=== PATIENT | female | born 1955 | race Caucasian/White ===

== ENCOUNTER 2017-05-09 14:00 | Inpatient (IN) | payer BC ==
[~2017-05-09] VITALS: Ht 154.9 cm; Wt 135.9 kg
--- NOTE | ~2017-05-09 | OR ---
PATIENT'S NAME: [facility] AGE: 62 Y [address] ROOM: [address] [address] [place] [facility] [place] DATE: 05/26/2017 OR/Procedure Report DISCHARGE DATE: FAMILY PHYSICIAN: Miguel Pompa ATTENDING PHYSICIAN: BURTON BARROS SURGEON: Burton Barros MD METAL DOOR ASSEMBLER: 1. BAYRON Jacobo. 2. Jeevan Valdez CST/FABRIC MACHINE OPERATOR. DATE OF PROCEDURE: 05/26/2017 PRE-OP DIAGNOSIS: 1. Degenerative joint disease left knee. 2. Obesity (5 feet and 1 inch tall and 136 kg). POST-OP DIAGNOSIS: 1. Degenerative joint disease left knee. 2. Obesity (5 feet and 1 inch tall and 136 kg). 3. 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 OPERATION: Left total knee arthroplasty with computer navigation. ANESTHESIA: Spinal anesthesia plus adductor canal block plus periarticular local anesthesia (ropivacaine with epinephrine and Toradol). ESTIMATED BLOOD LOSS: Less than 20 cubic centimeters. DRAIN: None. SPECIMEN: None. COMPLICATIONS: None. IMPLANT SYSTEM: Abilio Triathlon Size 4 left posterior stabilized femoral component Size 3 universal modular tibial baseplate 11 mm posterior stabilized size 3 X3 tibial polyethylene insert 32 mm Oval X3 patella component (triple pegged). INDICATIONS FOR SURGERY: The patient is a 62-year-old female who presents with advanced left knee degenerative joint disease and associated severely compromised activities of daily living. The patient has decided to proceed with knee replacement after having been thoroughly counseled regarding the associated risks, benefits, and limitations. We have specifically reviewed the risks and implications of infection, deep venous thrombosis, pulmonary embolism, mortality, neurovascular complications, blood transfusion (and PATIENT'S NAME: [facility] AGE: 62 Y [address] ROOM: [address] [address] LOC[place]: [facility] [place] DATE: 05/26/2017 OR/Procedure Report DISCHARGE DATE: FAMILY PHYSICIAN: Miguel Pompa ATTENDING PHYSICIAN: BURTON BARROS associated potential for disease transmission or transfusion reaction), stiffness, instability, mechanical deterioration of the components (due to wear and or loosening), and the potential need for revision. We have also emphasized the importance of active involvement and compliance with post- operative physical therapy as a means of optimizing range of motion and functional recovery. Informed consent has been granted. DESCRIPTION OF PROCEDURE: The patient was positioned supine after administration of anesthesia and prophylactic antibiotics. A well-padded pneumatic tourniquet was placed around the left proximal thigh, and the left lower extremity was prepped and draped with vigilant sterile technique. The patient's name as well as the intended operative side and procedure were confirmed with a verbal time-out involving myself, the circulating nurse, the scrub nurse, and the anesthesiologist. Examination under anesthesia demonstrated a very large soft tissue envelope surrounding the thigh, knee, and calf. There was a large effusion. There was no erythema. There was no abnormal warmth. Range of motion under anesthesia was from a 30-degree flexion contracture to 60 degrees of flexion. There was no clinically evident ligamentous insufficiency. The left lower extremity was elevated and exsanguinated with an Esmarch wrap, and the pneumatic tourniquet was inflated to 300mmHg. The knee was approached through a longitudinal midline incision. A medial parapatellar arthrotomy was performed and the patella was everted. Examination of the joint space demonstrated a large amount of benign-appearing translucent synovial fluid. There were very large osteophytes at the intercondylar notch. There was a very large osteophyte at the anterior aspect of the central portion of the tibial plateau. The anterior cruciate ligament was absent. The posterior cruciate ligament was intact. There was a very enlarged fabella. I debulked this, but left its posterior cortex (and ligamentous attachments) intact. There was a golf ball sized loose body at the posterior aspect of the medial compartment and two additional 1 cm diameter loose bodies at the posterior aspect of the intercondylar notch. There was full-thickness loss of articular cartilage throughout the medial femoral condyle and medial tibial plateau. There was erosion of at least 1 cm of subchondral bone from the posterior half of the medial tibial plateau. There was a 3 x 2 cm osteophyte at the superior pole of the patella. There was a 3 cm osteophyte at the superior aspect of the femoral trochlea. There were very large osteophytes at the superior and inferior margins of the patella. There was a very large osteophyte at the lateral femoral condyle as well. There was extensive complex degenerative tearing of the remnants of the medial and lateral menisci. The large soft tissue envelope at the posterior aspect of the thigh and calf with the significant barrier to full flexion of the knee and exposure of the knee. PATIENT'S NAME: KATY GEE [facility] AGE: 62 Y [address] ROOM: [id number] [place], [place] [address] LOCATION: [facility] [place] DATE: 05/26/2017 OR/Procedure Report DISCHARGE DATE: FAMILY PHYSICIAN: Miguel Pompa ATTENDING PHYSICIAN: BURTON BARROS Remnants of the menisci and cruciate ligaments were excised. The Snip.ly computer navigation femoral tracker was pinned in place at the distal aspect of the femoral trochlea. Absence of motion between the femur and the tracking device was confirmed manually and visually. Femoral osseous landmarks were obtained in order to calibrate the computer navigation system. Landmarks included the center of rotation of the ipsilateral hip, the center-point of the distal femur, the femoral AP axis, 57 points on the medial femoral condyle articular surface, and 57 points on the lateral femoral condyle articular surface. The Snip.ly computer navigation system was subsequently utilized to position the distal femoral resection block such that the distal femoral resection was performed perfectly perpendicular to the femoral mechanical axis. The distal femoral resection was performed with a Thumb Reading oscillating saw. The Snip.ly computer navigation tibial tracker was pinned in place at the anterior aspect of the tibial plateau. Absence of motion between the tibia and the tracking device was confirmed manually and visually. Tibial osseous landmarks were obtained in order to calibrate the computer navigation system. Landmarks included the center-point of the tibial plateau, the AP tibial axis, 57 points on the medial tibial plateau articular surface, 57 points on the lateral tibial plateau articular surface, the medial malleolus, and the lateral malleolus. The Snip.ly computer navigation system was subsequently utilized to position the proximal tibial resection block such that the proximal tibial resection was performed perfectly perpendicular to the tibial mechanical axis. The proximal tibial resection was performed with a Groupsite Precision oscillating saw. Perpendicularity of the tibial resection with respect to the tibial shaft axis was reconfirmed by inserting a spacer- block attached to an extramedullary guide yolette. External rotation of the anterior and posterior femoral resections was set parallel to the epicondylar axis and carefully adjusted in order to create a rectangular flexion gap. The box resection was performed with a reciprocating saw. Anterior and posterior chamfer resections were performed with the oscillating saw. Posterior condyle osteophytes were excised with an osteotome. All other osteophytes were excised with a rongeur. Resection of all remnants of the menisci was reconfirmed. Flexion and extension gaps were confirmed to be symmetric and well balanced with a spacer-block technique. The patella resection was performed with an oscillating saw such that the composite thickness of the reconstructed patella was equivalent to the thickness of the [place] patella. Patella tracking was confirmed to be optimal. A lateral retinacular release had been required in order to anupam the patella. Further lateral retinacular release was not necessary to optimize patella tracking. PATIENT'S NAME: KATY GEE [facility] AGE: 62 Y [address] ROOM: [address] [address] [place]: [facility] [place] DATE: 05/26/2017 OR/Procedure Report DISCHARGE DATE: FAMILY PHYSICIAN: Miguel Pompa ATTENDING PHYSICIAN: BURTON BARROS All trial components were removed and all prepared osseous surfaces were thoroughly irrigated with pulsatile saline lavage and dried prior to cementing all three components in a single stage using Abilio Simplex cement containing pre-mixed tobramycin. All extruded excess cement was removed. The entire joint space was thoroughly inspected and thoroughly irrigated with bacteriostatic pulsatile saline lavage to assure that there was no residual debris of any sort. Final range of motion was from full extension (with no passive hyperextension) to 125 degrees of flexion. Patella tracking was reconfirmed to be optimal. There was excellent anteroposterior stability at 90 degrees of flexion. There was 0 mm of medial lift-off to valgus stress in full extension. There was 2 mm of lateral lift-off to varus stress in full extension. The arthrotomy was closed with multiple simple and [id number] interrupted #1 Vicryl. Subcutaneous tissues were thoroughly re-irrigated with bacteriostatic pulsatile saline lavage. Subcutaneous tissues were re- approximated with simple buried interrupted #0 Vicryl sutures. The skin was closed with simple buried interrupted 2-0 Vicryl sutures followed by surgical philippe. The dressing consisted of Xeroform gauze, 4x4 gauze, ABD pads and two 6-inch Jordy Wraps. There were no intra-operative complications. It should be noted that the physician's medical assistant float played an active, integral role throughout this entire operation. By providing expert retraction, they greatly facilitated and expedited safe and effective exposure of the distal femur, proximal tibia and patella for preparation and implantation of the components. They were also actively involved in the patient's positioning, prepping and draping, as well as wound closure. MD JENNA PEREZ/keerthi /[id number] d: 05/26/171921 t: 06/02/17 0752, OPERATIVE SUMMARY
--- NOTE | ~2017-05-09 | DS ---
PATIENT'S NAME: KATY GEE [facility] AGE: 62 Y [address] ROOM: [place] [address] [place]ATION: [facility] [place] DATE: 05/26/2017 Discharge Summary DISCHARGE DATE: 05/28/2017 FAMILY PHYSICIAN: Miguel Pompa ATTENDING PHYSICIAN: Chandra Rivero PRIMARY DIAGNOSIS: Degenerative joint disease of the left knee. SECONDARY DIAGNOSES: 1. Hypertension. 2. Hyperlipidemia. 3. History of tobacco use. PROCEDURE PERFORMED: Left total knee arthroplasty. HISTORY: The patient is a 62-year-old female, who presents with advanced left knee degenerative joint disease and associated severely compromised activities of daily living. The patient has decided to proceed with total knee arthroplasty after having been thoroughly counseled regarding the risks, benefits, limitations and alternatives. Please refer to the outpatient clinic notes and admission history and physical for this patient. HOSPITAL COURSE: The patient underwent a left total knee arthroplasty on 05/23/2017 without complications. Spinal anesthesia plus adductor canal block plus periarticular local anesthesia was utilized. The patient received 24 hours of perioperative prophylactic antibiotics and remained hemodynamically stable, neurovascularly intact throughout the entire hospital course. The postoperative prophylactic deep venous thrombosis prophylaxis consisted of Xarelto, early mobilization and pneumatic compression devices. Daily physical therapy for gait training, transfer training range of motion and quadriceps isometric exercises were received. The patient progressed well in physical therapy. On the date of discharge, 05/28/2017, the incision at the knee was healing well and showed no signs of infection. DISPOSITION: Home. DISCHARGE ACTIVITY: The patient is to bear weight as tolerated with range of motion and quadriceps isometric exercises as instructed. The operative extremity is to be elevated at least 90% of the day. There is to be sterile 4x4 gauze dressings to the incision daily. Dr. Rivero is to be notified immediately if there is any increased pain, fevers, chills erythema or drainage. DISCHARGE MEDICATIONS: 1. Xarelto 10 mg 1 tab p.o. daily for 12 days for postoperative DVT PATIENT'S NAME: KATY GEE [facility] AGE: 62 Y [address] ROOM: [place] [address] LOCATION: [facility] [place]MIT DATE: 05/26/2017 Discharge Summary DISCHARGE DATE: 05/28/2017 FAMILY PHYSICIAN: Miguel Pompa ATTENDING PHYSICIAN: Chandra Rivero. 2. Hydromorphone 2 mg 1 to 2 tabs p.o. every 4 hours p.r.n. for pain. 3. She is then instructed to continue all her other preadmission medications as instructed by her internal medicine doctor. FOLLOWUP: Followup appointment is to be with Dr. Rivero's office 7-9 days postoperatively for her initial postoperative evaluation with x-rays of her knee and staple removal at that time. TEAGAN JARVIS PA-C FOR MD STEPHANIE PEREZ/ellil /[id number] d: 06/01/17 2256 t: 06/02/172100, DISCHARGE SUMMARY
[2017-05-10] MEDS ORDERED: OMEPRAZOLE40 MG PO (11:11)
[2017-05-10] MEDS ORDERED: HYDROCODON-ACE1 EAC4 PO (11:12)
[2017-05-10] MEDS ORDERED: FLEXERIL10 MG PO (11:12)
[2017-05-10] MEDS ORDERED: GLUCOSAMINE CH1 EAC2 PO (11:13)
[2017-05-10] MEDS ORDERED: TAB-A-VITE1 EACH PO (11:13)
[2017-05-10] MEDS ORDERED: TYLENOL EXTRA500 MG PO (11:14)
[2017-05-28] MEDS ORDERED: XARELTO10 MG PO (13:09)
[2017-05-28] MEDS ORDERED: COLACE100 MG PO (13:10)
[2017-05-28] MEDS ORDERED: PRINIVIL (ZESTR20 MG PO (13:12)
[2017-05-28] MEDS ORDERED: DILAUDID 2MG(HYD2 MG PO (13:12)
== END 2017-05-28 14:45 | disposition disaster alternative care site (69) | DRG 470 ==
LOC: GMSU 05-26 06:06 → G3N 05-26 06:06 → GMSU 05-26 12:52
PROVIDERS: ADMIT Orthopaedic Surgery
PROC: 8E0YXBZ Computer Assisted Procedure of Lower Extremity (ICD-10-PCS; principal; 2017-05-26)
PROC: 0SRD0J9 Replacement of Left Knee Joint with Synthetic Substitute, Cemented, Open Approach (ICD-10-PCS; principal; 2017-05-26)
DX: M17.12 Unilateral primary osteoarthritis, left knee (principal); Z68.43 Body mass index [BMI] 50.0-59.9, adult; I10 Essential (primary) hypertension; M48.00 Spinal stenosis, site unspecified; E66.9 Obesity, unspecified; E78.5 Hyperlipidemia, unspecified; Z87.891 Personal history of nicotine dependence
CPT/HCPCS: C1713; C1776; J0690; J1100; J1885; J2001; J2250; J2795; J7120

== ENCOUNTER → 2017-05-11 | Outpatient (CLI) | payer BC ==
[~2017-05-11] MED LIST: COLACE100 MG PO; DILAUDID 2MG(HYD2 MG PO; FLEXERIL10 MG PO; GLUCOSAMINE CH1 EAC2 PO; HYDROCODON-ACE1 EAC4 PO; OMEPRAZOLE40 MG PO; PRINIVIL (ZESTR20 MG PO; TAB-A-VITE1 EACH PO; TYLENOL EXTRA500 MG PO; XARELTO10 MG PO
== END | disposition disaster alternative care site (69) ==
LOC: GNJRC 10:19
DX: Z01.812 Encounter for preprocedural laboratory examination (principal); M17.11 Unilateral primary osteoarthritis, right knee